=== PATIENT | female | born 1950 | race African-American/Black ===

== ENCOUNTER 2020-04-17 15:06 | Inpatient (IN) | payer MEDICARE, OTHER ==
[~2020-04-17] VITALS: Ht 165.1 cm; Wt 64.4 kg
[~2020-04-17 15:06] MED LIST: AMLO5TAB4 MT; ATOR10TA MT; LEVO250T2 PO
[2020-04-17] MEDS ORDERED: METF500T PO (15:13)
[2020-04-17 16:08] LABS: BASOPHILS % 0.6 % (0.0-2.0); EOSINOPHILS % 1.4 % (0.0-5.0); HEMATOCRIT. 23.3 % (36.0-48.0); HEMOGLOBIN. 7.1 g/dL (12.0-16.0); LYMPHOCYTES % 15.2 % (20.0-50.0); MEAN CORPUSCULAR HEMOGLOBIN 26.6 pg (28.0-32.0); MEAN CORPUSCULAR VOLUME 86.9 fL (81.0-99.0); MEAN PLATELET VOLUME 10.1 fl (7.4-10.4); MONOCYTES % 6.5 % (2.0-8.0); NEUTROPHILS % 76.3 % (40.0-76.0); PLATELET 179 x1000/uL (130-400); RED BLOOD CELL COUNT 2.68 mill/uL (4.2-5.4); RED CELL DISTRIBUTION WIDTH 19.4 % (11.6-14.6)
[2020-04-17 16:14] LABS: CHLORIDE 124 mEq/L (98-107)
[2020-04-17 16:18] LABS: INR 1.2; PROTHROMBIN TIME 12.3 sec (9.6-11.0)
[2020-04-17] MEDS ORDERED: KCL 20MEQ/100ML PREMIX 100 ML IV ONE ×2 (16:45→19:30)
[2020-04-17] MEDS ORDERED: CALCIUM GLUCONATE 100MG/ML 10ML VIAL IV ONE (16:45)
[2020-04-17] MEDS ORDERED: MAGNESIUM 1 G PREMIX 100 ML IV ONE (16:45)
[2020-04-17] MEDS ORDERED: FAMOTIDINE 20MG/2ML VIAL IV ONE (17:00)
[2020-04-17] MEDS ORDERED: ONDANSETRON HCL 4MG/2ML INJ IM ONE (17:00)
[2020-04-17] MEDS ORDERED: CEFAZOLIN 1000MG PREMIX 50 ML IV ONE (19:15)
[2020-04-17] MEDS ORDERED: IOHEXOL-350 100 ML BOTTLE ONE (20:29)
[2020-04-17] MEDS ORDERED: METRONIDAZOLE 500 MG PREMIX 100 ML IV ONE (20:30)
[2020-04-17] MEDS ORDERED: ONDANSETRON HCL 4MG/2ML INJ IV PRN (21:30)
[2020-04-17 21:54] VITALS: BP 123/62
[2020-04-17] MEDS ORDERED: HYDR25TA MT (21:58)
[2020-04-17] MEDS ORDERED: LEVE250T2 MT (21:58)
[2020-04-17] MEDS ORDERED: CYCL10TA7 PO (21:58)
[2020-04-17] MEDS ORDERED: LISI10TA5 MT (21:58)
[2020-04-17 22:00] VITALS: BP 123/62
[2020-04-17] MEDS: SODIUM CHLORIDE 0.45% 1,000 ML IV SCH (22:12)
[2020-04-17] MEDS: MORPHINE SULFATE 2 MG/ML CPJ (NOT FOR IM USE) IV PRN (22:13)
[2020-04-17] MEDS ORDERED: POTASSIUM CHLORIDE 20MEQ TABLET SR PO SCH (22:15)
[2020-04-17] MEDS ORDERED: DEXTROSE 50% WATER 50ML SYRINGE IV PRN (22:15)
[2020-04-17] MEDS: CEFTRIAXONE 1,000 MG in DEXTROSE 5% WATER 50 ML IV SCH (23:00)
[2020-04-18] VITALS: BP 137/76
[2020-04-18 04:00] VITALS: BP 120/80
[2020-04-18] MEDS: METRONIDAZOLE 500 MG PREMIX 100 ML IV SCH ×3 (05:00→23:33)
[2020-04-18] MEDS: MORPHINE SULFATE 2 MG/ML CPJ (NOT FOR IM USE) IV PRN ×3 (05:00→20:15)
[2020-04-18] MEDS ORDERED: METRONIDAZOLE 500 MG PREMIX 100 ML IV SCH (05:00)
[2020-04-18] MEDS ORDERED: POTASSIUM CHLORIDE 20MEQ TABLET SR PO SCH (06:00)
[2020-04-18] MEDS: BLOOD SUGAR DIAGNOSTIC STRIP TEST SCH ×4 (07:08→21:47)
[2020-04-18] MEDS: INSULIN LISPRO 100 UNITS/ML SUBCUT SCH ×5 (07:28→21:00)
[2020-04-18 07:57] VITALS: BP 124/79
[2020-04-18] MEDS: LISINOPRIL 10MG TABLET PO SCH (09:02)
[2020-04-18] MEDS: AMLODIPINE 5MG TABLET PO SCH (09:02)
[2020-04-18] MEDS: HYDROCHLOROTHIAZIDE 25MG TABLET PO SCH (09:02)
[2020-04-18] MEDS: CYCLOBENZAPRINE 10MG TABLET PO SCH (09:02)
[2020-04-18] MEDS: ENOXAPARIN 40MG/0.4ML SYR SUBCUT SCH (09:05)
[2020-04-18] MEDS: LEVETIRACETAM 250MG TABLET PO SCH ×2 (09:16→18:03)
[2020-04-18] MEDS: SODIUM CHLORIDE 0.45% 1,000 ML IV SCH (10:50)
[2020-04-18] MEDS ORDERED: LIDOCAINE HCL 1% 20ML VIAL (Pyxis) INJ ONE (11:21)
[2020-04-18 12:00] VITALS: BP 101/65
[2020-04-18] MEDS ORDERED: POTASSIUM CHLORIDE 20MEQ TABLET SR PO NR (13:00)
[2020-04-18] MEDS ORDERED: SODIUM BICARBONATE 150 MEQ in SODIUM CHLORIDE 0.45% 1,000 ML IV SCH (14:00)
[2020-04-18 16:00] VITALS: BP 103/47
[2020-04-18 17:10] LABS: BASOPHILS % 0.3 % (0.0-2.0); EOSINOPHILS % 0.4 % (0.0-5.0); HEMATOCRIT. 29.1 % (36.0-48.0); LYMPHOCYTES % 14.3 % (20.0-50.0); MEAN CORPUSCULAR HEMOGLOBIN 26.3 pg (28.0-32.0); MEAN CORPUSCULAR VOLUME 84.4 fL (81.0-99.0); MEAN PLATELET VOLUME 10.5 fl (7.4-10.4); MONOCYTES % 9.8 % (2.0-8.0); NEUTROPHILS % 75.2 % (40.0-76.0); PLATELET 230 x1000/uL (130-400); RED BLOOD CELL COUNT 3.45 mill/uL (4.2-5.4); RED CELL DISTRIBUTION WIDTH 19.3 % (11.6-14.6)
[2020-04-18 17:13] LABS: CHLORIDE 111 mEq/L (98-107)
[2020-04-18 17:19] LABS: TOTAL IRON BINDING CAPACITY 318 ug/dL (250-450)
[2020-04-18 17:21] LABS: HEMOGLOBIN. 9.1 g/dL (12.0-16.0)
[2020-04-18 20:00] VITALS: BP 142/69
[2020-04-18] MEDS ORDERED: CALCIUM GLUCONATE 1,000 MG in DEXT 5% WATER 90 ML IV ONE (20:00)
[2020-04-18 21:25] LABS: CLARITY URINE CLOUDY (CLEAR); COLOR URINE YELLOW (YELLOW); KETONES URINE NEGATIVE (NEGATIVE); LEUKOCYTE ESTERASE URINE 3+ (NEGATIVE); NITRITE URINE POSITIVE (NEGATIVE); OCCULT BLOOD URINE 3+ (NEGATIVE); PH URINE 5.5 (4.5-8.0); PROTEIN URINE TRACE (NEGATIVE); SPECIFIC GRAVITY URINE 1.024 (1.005-1.030); UROBILINOGEN URINE 0.2 E.U./dL (0.2-1.0)
[2020-04-18 21:36] LABS: *COCAINE SCREEN URINE NEGATIVE (NEGATIVE); METHADONE URINE SCREEN NEGATIVE (NEGATIVE); OPIATES URINE SCREEN PRESUMTIVE POSITIVE (NEGATIVE)
[2020-04-18 21:37] LABS: *AMPHETAMINES SCREEN URINE NEGATIVE (NEGATIVE); *BARBITURATES SCREEN URINE NEGATIVE (NEGATIVE); *BENZODIAZEPINES SCREEN URINE NEGATIVE (NEGATIVE); CANNABINOID URINE SCREEN NEGATIVE (NEGATIVE); PHENCYCLIDINE URINE SCREEN NEGATIVE (NEGATIVE)
[2020-04-18] MEDS: ACETAMINOPHEN 325MG TABLET PO PRN (22:00)
[2020-04-18] MEDS: ATORVASTATIN CALCIUM 10MG TABLET PO SCH (22:00)
[2020-04-19] VITALS: BP 100/65
[2020-04-19] MEDS: CEFTRIAXONE 1,000 MG in DEXTROSE 5% WATER 50 ML IV SCH ×2 (00:49→22:42)
[2020-04-19 04:00] VITALS: BP 127/61
[2020-04-19] MEDS: METRONIDAZOLE 500 MG PREMIX 100 ML IV SCH ×3 (05:34→22:42)
[2020-04-19 06:17] LABS: BASOPHILS % 0.5 % (0.0-2.0); EOSINOPHILS % 2.1 % (0.0-5.0); HEMOGLOBIN. 8.1 g/dL (12.0-16.0); MEAN CORPUSCULAR HEMOGLOBIN 27.1 pg (28.0-32.0); MONOCYTES % 11.1 % (2.0-8.0); NEUTROPHILS % 68.3 % (40.0-76.0); PLATELET 186 x1000/uL (130-400); RED BLOOD CELL COUNT 2.98 mill/uL (4.2-5.4); RED CELL DISTRIBUTION WIDTH 19.1 % (11.6-14.6)
[2020-04-19] MEDS: INSULIN LISPRO 100 UNITS/ML SUBCUT SCH ×4 (07:27→21:00)
[2020-04-19] MEDS: BLOOD SUGAR DIAGNOSTIC STRIP TEST SCH ×4 (07:27→21:00)
[2020-04-19 08:00] VITALS: BP 110/74
[2020-04-19] MEDS: LEVETIRACETAM 250MG TABLET PO SCH ×2 (08:53→18:43)
[2020-04-19] MEDS: AMLODIPINE 5MG TABLET PO SCH (08:53)
[2020-04-19] MEDS: MORPHINE SULFATE 2 MG/ML CPJ (NOT FOR IM USE) IV PRN ×3 (08:53→22:44)
[2020-04-19] MEDS: HYDROCHLOROTHIAZIDE 25MG TABLET PO SCH (08:53)
[2020-04-19] MEDS: CYCLOBENZAPRINE 10MG TABLET PO SCH (08:53)
[2020-04-19] MEDS: ENOXAPARIN 40MG/0.4ML SYR SUBCUT SCH (08:54)
[2020-04-19] MEDS: LISINOPRIL 10MG TABLET PO SCH (08:54)
[2020-04-19] MEDS ORDERED: POTASSIUM CHLORIDE 20MEQ TABLET SR PO PRN (09:00)
[2020-04-19 12:00] VITALS: BP 125/75
[2020-04-19 16:00] VITALS: BP 120/76
[2020-04-19 17:53] LABS: CARCINO EMBRYONIC ANTIGEN 1.6 ng/ml
[2020-04-19 20:00] VITALS: BP 137/83
[2020-04-19] MEDS ORDERED: DIPHENOXYLATE/ATROPINE 2.5/0.025MG TABLET PO PRN (21:45)
[2020-04-19] MEDS: ATORVASTATIN CALCIUM 10MG TABLET PO SCH (22:42)
[2020-04-19] MEDS ORDERED: DIPHENOXYLATE/ATROPINE 2.5/0.025MG TABLET PO NR (23:00)
[2020-04-20] VITALS: BP 137/81
[2020-04-20 04:00] VITALS: BP 117/59
[2020-04-20] MEDS: METRONIDAZOLE 500 MG PREMIX 100 ML IV SCH ×3 (06:04→21:47)
[2020-04-20] MEDS: BLOOD SUGAR DIAGNOSTIC STRIP TEST SCH ×4 (06:39→21:00)
[2020-04-20 08:00] VITALS: BP 120/78
[2020-04-20] MEDS: CYCLOBENZAPRINE 10MG TABLET PO SCH (09:00)
[2020-04-20] MEDS: LEVETIRACETAM 250MG TABLET PO SCH ×2 (09:00→17:00)
[2020-04-20] MEDS: HYDROCHLOROTHIAZIDE 25MG TABLET PO SCH (09:00)
[2020-04-20] MEDS: LISINOPRIL 10MG TABLET PO SCH (09:00)
[2020-04-20] MEDS: AMLODIPINE 5MG TABLET PO SCH (09:00)
[2020-04-20 12:00] VITALS: BP 113/77
[2020-04-20] MEDS: INSULIN LISPRO 100 UNITS/ML SUBCUT SCH ×3 (12:50→21:00)
[2020-04-20 12:56] LABS: BASOPHILS % 0.4 % (0.0-2.0); CHLORIDE 109 mEq/L (98-107); EOSINOPHILS % 3.2 % (0.0-5.0); HEMOGLOBIN. 7.9 g/dL (12.0-16.0); LYMPHOCYTES % 20.4 % (20.0-50.0); MEAN CORPUSCULAR HEMOGLOBIN 26.4 pg (28.0-32.0); MEAN CORPUSCULAR VOLUME 84.1 fL (81.0-99.0); MEAN PLATELET VOLUME 9.9 fl (7.4-10.4); MONOCYTES % 9.6 % (2.0-8.0); NEUTROPHILS % 66.4 % (40.0-76.0); PLATELET 170 x1000/uL (130-400); RED BLOOD CELL COUNT 2.97 mill/uL (4.2-5.4); RED CELL DISTRIBUTION WIDTH 18.6 % (11.6-14.6)
[2020-04-20 13:04] LABS: PARTIAL THROMBOPLASTIN TIME 27.3 sec (23.4-31.0); PROTHROMBIN TIME 10.5 sec (9.6-11.0)
[2020-04-20] MEDS ORDERED: IOHEXOL-300 100 ML BOTTLE ONE (13:14)
[2020-04-20 16:00] VITALS: BP 132/69
[2020-04-20] MEDS ORDERED: HYDROMORPHONE HCL/PF 2MG/ML (OR) ONE ×2 (18:08→18:22)
[2020-04-20] MEDS ORDERED: MIDAZOLAM HCL 5 MG/5 ML VIAL ONE ×3 (18:09→18:41)
[2020-04-20] MEDS ORDERED: CEFAZOLIN SODIUM 1000MG/VIAL ONE (18:24)
[2020-04-20] MEDS ORDERED: ONDANSETRON HCL 4MG/2ML INJ IV PRN (19:15)
[2020-04-20] MEDS ORDERED: LABETALOL 5MG/ML SYR 20 MG/4 ML SYRINGE IV PRN (19:15)
[2020-04-20] MEDS ORDERED: HYDROMORPHONE HCL/PF 2MG/ML CPJ IV PRN (19:15)
[2020-04-20] MEDS ORDERED: MEPERIDINE HCL/PF 25MG/ML CPJ IV PRN (19:15)
[2020-04-20] MEDS: ATORVASTATIN CALCIUM 10MG TABLET PO SCH (21:00)
[2020-04-20 21:13] VITALS: BP 125/81
[2020-04-20] MEDS: CEFTRIAXONE 1,000 MG in DEXTROSE 5% WATER 50 ML IV SCH (21:17)
[2020-04-20] MEDS: ACETAMINOPHEN 325MG TABLET PO PRN (23:43)
[2020-04-21] VITALS: BP 118/85
[2020-04-21 04:00] VITALS: BP 118/62
[2020-04-21] MEDS: METRONIDAZOLE 500 MG PREMIX 100 ML IV SCH (05:35)
[2020-04-21 07:40] VITALS: BP 116/71
[2020-04-21] MEDS: BLOOD SUGAR DIAGNOSTIC STRIP TEST SCH ×2 (07:44→12:10)
[2020-04-21] MEDS: INSULIN LISPRO 100 UNITS/ML SUBCUT SCH ×2 (07:44→12:11)
[2020-04-21] MEDS: AMLODIPINE 5MG TABLET PO SCH (08:54)
[2020-04-21] MEDS: LISINOPRIL 10MG TABLET PO SCH (08:54)
[2020-04-21] MEDS: HYDROCHLOROTHIAZIDE 25MG TABLET PO SCH (08:54)
[2020-04-21] MEDS: CYCLOBENZAPRINE 10MG TABLET PO SCH (08:54)
[2020-04-21] MEDS: LEVETIRACETAM 250MG TABLET PO SCH (09:11)
[2020-04-21 11:27] VITALS: BP 112/62
[2020-04-21 12:00] VITALS: BP 112/62
== END 2020-04-21 13:20 | disposition home or self-care (01) | DRG 444 ==
LOC: ER 15:06 → 6WST 19:08 → EDBEDREQ 19:15 → ENRESERV 19:33
PROVIDERS: ADMIT Family Medicine; ATTEND Family Medicine
PROC: 0FCD8ZZ Extirpation of Matter from Pancreatic Duct, Via Natural or Artificial Opening Endoscopic (ICD-10-PCS; principal; 2020-04-20)
PROC: 0F7C8ZZ Dilation of Ampulla of Vater, Via Natural or Artificial Opening Endoscopic (ICD-10-PCS; 2020-04-20)
PROC: BF100ZZ Fluoroscopy of Bile Ducts using High Osmolar Contrast (ICD-10-PCS; 2020-04-20)
DX: K83.8 Other specified diseases of biliary tract (principal); E43 Unspecified severe protein-calorie malnutrition; E87.0 Hyperosmolality and hypernatremia; E87.2 Acidosis; N17.9 Acute kidney failure, unspecified; N39.0 Urinary tract infection, site not specified; K86.9 Disease of pancreas, unspecified; K52.9 Noninfective gastroenteritis and colitis, unspecified; E11.9 Type 2 diabetes mellitus without complications; E78.5 Hyperlipidemia, unspecified; E83.51 Hypocalcemia; E86.0 Dehydration; E87.6 Hypokalemia; I10 Essential (primary) hypertension; B96.89 Other specified bacterial agents as the cause of diseases classified elsewhere; K86.89 Other specified diseases of pancreas; G40.909 Epilepsy, unspecified, not intractable, without status epilepticus; K44.9 Diaphragmatic hernia without obstruction or gangrene; D63.8 Anemia in other chronic diseases classified elsewhere; E83.52 Hypercalcemia; E87.5 Hyperkalemia; Z20.828 Contact with and (suspected) exposure to other viral communicable diseases; Z68.23 Body mass index [BMI] 23.0-23.9, adult; Z79.899 Other long term (current) drug therapy
CPT/HCPCS: 36415; 36573; 71045; 71275; 74174; 74181; 74328; 76705; 80048; 80053; 80305; 81003; 82105; 82270; 82378; 82607; 82728; 82746; 82962; 83036; 83540; 83550; 83605; 83880; 84132; 84484; 85025; 86301; 86850; 86900; 87077; 87186; 87426; 87635; 93005; 99291; C1725; C1726; C1769; J0610; J0690; J0696; J1170; J1650; J1815; J2250; J2270; J2405; J3475; J3480; J3490; J7060; Q9967